=== PATIENT | female | born 1955 | race Caucasian/White ===

== ENCOUNTER 2018-05-31 08:21 | Day surgery (SDC) | payer OTHER, SELFPAY ==
--- NOTE | 2018-05-31 08:13 | P.HP_ITS ---
History of Present Illness Date Patient Seen: 05/31/18 Chief complaint: colonoscopy biopsy [phone] Narrative: 62-year-old female here for colon cancer screening. Prior colonoscopy was performed 14 years ago in [place]. There is no family history of colon cancer colon polyps Meds Home Medications Medication Instructions Recorded Confirmed Type bupropion HCl [Wellbutrin SR] 150 mg PO BID #0 02/10/17 History escitalopram oxalate [Lexapro] 20 mg PO QDAY #0 02/10/17 History lisinopril 10 mg PO QDAY #0 02/10/17 History lovastatin 10 mg PO DAILY 05/31/18 05/31/18 History metformin 1,000 mg PO BID 05/31/18 05/31/18 History Allergies Allergy/AdvReac Type Severity Reaction Status Date / Time azithromycin [AZITHROMYCIN] Allergy Unknown bad Verified 05/31/18 08:35 intestinal issues, itching lactase [From DAIRY AID] Allergy Unknown cramping, Verified 05/31/18 08:35 gas, diarrhea Sulfa (Sulfonamide Allergy Unknown mouth Verified 05/31/18 08:35 Antibiotics) swells [SULFA (SULFONAMIDE ANTIBIOTICS)] wheat [WHEAT] Allergy Unknown diarrhea, Verified 05/31/18 08:35 asthma, rash egg whites Allergy Unknown Uncoded 11/09/17 12:45 Review of Systems Review of Systems All systems reviewed & are unremarkable except as noted in HPI and below Exam Narrative Exam Narrative: General: Patient is well developed, not in apparent distress Cardiovascular: Regular rate and rhythm, no murmurs, rubs, or gallops; no evidence of edema; no palpable abdominal aortic aneurysm Gastrointestinal: Normoactive bowel sounds, soft, nontender, nondistended, no rebound tenderness, no hepatosplenomegaly, no evidence of hernia Assessment & Plan Plan: Assessment/Plan Narrative: 62-year-old female here for colon cancer screening. Prior colonoscopy done 14 years ago in [place] was unrevealing. Patient is at average risk for colon cancer. Regarding the procedure(s), the risks and potential complications, benefits, and alternatives (including not doing the procedure) were discussed with the patient. The risks include but are not limited to bleeding, splenic injury, infection, perforation which may require surgical intervention, missed lesions, and adverse reactions to sedative medicines. After a question and answer period , the patient agreed to proceed with the procedure(s) and gives informed consent.
[2018-05-31 08:30] VITALS: BP 112/68; PULSE 86; RESP 16; TEMP 36.1; O2SAT 98; BMI 65.8
[2018-05-31] MEDS: MIDAZOLAM 5 MG/5 ML VIAL IV (09:50)
[2018-05-31] MEDS: fentaNYL 250 MCG/5 ML INJ IV (09:51)
--- NOTE | 2018-05-31 09:59 | PM.OP.ENDO ---
Operative Date/Time/Diagnoses Date of procedure: 05/31/18 Procedure Notes Procedure in detail: Surgeon: Esau Champion MD Procedure: Colonoscopy Preoperative diagnosis: Average risk colon cancer screening Postoperative diagnosis: Grade 1 internal hemorrhoids Medications: Conscious sedation using 4 mg IV of Midazolam and 150 mcg IV of Fentanyl Preanesthesia Assessment An H and P was performed/updated and the Px?s ASA class is 2. The procedure was discussed in detail with the patient. The potential risks and complications including infection, bleeding, missed lesions, perforation, need for surgery in case of perforation, prolonged hospital stay, and were explained. A brief question and answer period was allotted and once all questions were answered, informed consent was obtained. The patient was brought back to the procedure room and placed on standard monitoring. The patient?s vital signs were monitored continuously throughout the entire procedure. Prior to starting, a timeout was performed to confirm the patient?s identity, allergies, medications, and procedure. Procedure in detail The patient was placed in left lateral decubitus position and once adequate sedation was obtained a DUSTIN was performed. The digital rectal examination did not reveal any palpable lesions. The tip of the colonoscope was placed in the anal canal and advanced without difficulty all the way to the cecum which was identified by the appendiceal orifice and the ileocecal valve. The terminal ileum was intubated to a distance of 5 cm from the ileocecal valve and the mucosa appeared normal. The colonoscope was brought back to the cecum and careful examination of all childs of the colon was performed with irrigation of any residual stool. The colonic mucosa throughout the entire colon appeared normal with no evidence of polyps. Retroflexion was performed in the rectum which revealed grade 1 internal hemorrhoids. The patient tolerated the procedure well and will be brought back to the recovery area to be discharged once criteria are met. The prep was judged to be good and adequate to identify polyps less than 5 mm. The withdrawal time was 11 min. The total physician intraservice time was 17 min. Complications There were no complications and estimated blood loss was zero. Recommendations: Resume previous diet Continue outPx medications Follow up pathology results Repeat colonoscopy for screening in 10 years An emergency contact number was given to the patient for any complications related to the procedure
--- NOTE | 2018-05-31 10:04 | P.DS_ITS ---
History of Present Illness Chief complaint: colonoscopy biopsy [id number] [phone] Narrative: 62-year-old female here for colon cancer screening. Prior colonoscopy was performed 14 years ago in [place]. There is no family history of colon cancer colon polyps Discharge Providers Discharge provider: Esau Champion MD Discharge Date: 05/31/18 Exam Vital Signs (past 8 hours): - 05/31/18 08:30 Temperature 97 F L Pulse Rate 86 Respiratory Rate 16 Blood Pressure 112/68 Pulse Oximetry 98 Oxygen Delivery Method Room Air Narrative Exam Narrative: General: Patient is well developed, not in apparent distress Cardiovascular: Regular rate and rhythm, no murmurs, rubs, or gallops; no evidence of edema; no palpable abdominal aortic aneurysm Gastrointestinal: Normoactive bowel sounds, soft, nontender, nondistended, no rebound tenderness, no hepatosplenomegaly, no evidence of hernia Discharge Plan Discharge Plan Patient Disposition: Home Discharge Med Rec/Prescriptions Prescriptions: Continue bupropion HCl [Wellbutrin SR] 150 MG tablet extended release 12 hr 150 mg PO BID Qty: 0 RF: 0 lisinopril 10 MG tablet 10 mg PO QDAY Qty: 0 RF: 0 escitalopram oxalate [Lexapro] 20 MG tablet 20 mg PO QDAY Qty: 0 RF: 0 lovastatin 10 mg Tablet 10 mg PO DAILY RF: 0 metformin 1,000 mg Tablet 1,000 mg PO BID RF: 0 Discharge Orders: Discharge (Order); Ordered 05/31/18 Ordered By: Esau Champion Provider Discharge Instructions Diet: Diet as Tolerated Visit Report/Discharge Packet Stand Alone Forms: Surgery Discharge Discharge Data Attending Provider: Esau Champion
[2018-05-31 10:08] VITALS: BP 107/68; PULSE 86; RESP 16; TEMP 36.9; O2SAT 94
== END 2018-05-31 10:15 | disposition home or self-care (01) ==
PROVIDERS: Visit Provider Internal Medicine Gastroenterology
PROC: 0DJD8ZZ Inspection of Lower Intestinal Tract, Via Natural or Artificial Opening Endoscopic (ICD-10-PCS; CPT 45378; principal; 2018-05-31 09:30)
DX: Z12.11 Encounter for screening for malignant neoplasm of colon (principal); K64.0 First degree hemorrhoids
CPT/HCPCS: 45378; J2250; J3010

== ENCOUNTER → 2020-11-10 09:41 | Outpatient (CLI) | payer MEDICARE, OTHER, SELFPAY ==
--- NOTE | 2020-11-10 | DI.RAD.S_ITS ---
PROCEDURE: FL UPPER GI W AIR INDICATIONS: Bariatric surgery status COMPARISON: None. FINDINGS: KUB: Status post laparoscopic gastric banding Esophagus: Esophageal mucosa is normal on air-contrast views. On single-contrast views, there is decreased esophageal peristalsis. Occasional retrograde propulsion of contrast material. No strictures, extrinsic mass effects, or diverticula. No hiatal hernia or elicited gastroesophageal reflux. Stomach: The stomach is normally distensible, with normal rugal fold thickness. No mucosal masses or ulcers. Pylorus and duodenal bulb appear normal in morphology. Duodenal folds are normal in thickness as well. IMPRESSION: Esophageal dysmotility and postsurgical changes as above. Dictated by: Marco Kilpatrick M.D. on 11/10/2020 at 14:10 Approved by: Marco Kilpatrick M.D. on 11/10/2020 at 14:13
== END ==
PROVIDERS: Referring Provider Family Medicine; Visit Provider Family Medicine
DX: R13.14 Dysphagia, pharyngoesophageal phase (principal); K22.4 Dyskinesia of esophagus; Z98.84 Bariatric surgery status
CPT/HCPCS: 74246